=== PATIENT | female | born 1980 | race Caucasian/White ===

== ENCOUNTER 2022-03-27 07:35 | Outpatient (CLI) | payer OTHER, SELFPAY ==
--- NOTE | ~2022-03-27 | MM_ITS ---
EXAMINATION: MM screening amara BI w jed HISTORY: Screening mammogram TECHNIQUE: Craniocaudal and mediolateral oblique 3-D tomosynthesis images were obtained and synthetic 2-D images were generated. CAD analysis was submitted and interpreted. COMPARISON: No prior mammogram is available for comparison at this institution. BREAST PARENCHYMAL COMPOSITION: The breasts are extremely dense, which lowers the sensitivity of mamm ography. FINDINGS: RIGHT BREAST: There is a possible mass in the middle third outer breast best appreciated 4 cm from th e nipple on the craniocaudal view. LEFT BREAST: There is a possible subareolar left breast mass. IMPRESSION: 1. Possible bilateral breast masses which may represent the patient's baseline however no comparison is currently available. 2. Comparison with prior mammograms is necessary. BI-RADS Category 0: Incomplete: Needs comparison with prior mammograms. Reviewed, dictated and finalized at location A. CLERK
== END 2022-03-27 07:36 | disposition home or self-care (01) ==
PROVIDERS: PCP Family Medicine; Visit Provider Student in an Organized Health Care Education/Training Program
DX: Z12.31 Encounter for screening mammogram for malignant neoplasm of breast (principal); R92.8 Other abnormal and inconclusive findings on diagnostic imaging of breast
CPT/HCPCS: 77063; 77067

== ENCOUNTER 2022-04-20 12:12 | Outpatient (CLI) | payer OTHER, SELFPAY ==
--- NOTE | ~2022-04-20 | US_ITS ---
US breast BI complete DATE: 04/20/2022 13:12 INDICATION: Bilateral breast masses suggested on 03/27/2022 screening mammogram TECHNIQUE: High-resolution ultrasound imaging of both complete breasts, including all 4 quadrants and subareolar areas COMPARISON: 03/27/2022 bilateral screening mammogram 04/20/2022 bilateral diagnostic mammogram FINDINGS: No suspicious mass or shadowing, cyst or other significant sonographic abnormality in eithe r breast is detected. IMPRESSION: BI-RADS Category 1: Negative Reviewed, dictated and finalized at Location A. Reviewed, dictated and finalized at location A. DING SERVICES COORDINATOR
--- NOTE | ~2022-04-20 | MM_ITS ---
EXAMINATION: MM diagnostic amara BI w jed HISTORY: Possible bilateral breast masses suggested on 03/27/2022 screening mammogram TECHNIQUE: Additional 3-D tomosynthesis images of both breasts were performed and synthetic 2-D image s were generated. CAD analysis was submitted and interpreted. High resolution complete bilateral keri st ultrasound including all 4 quadrants and subareolar areas was performed. COMPARISON: 03/27/2022 bilateral screening mammogram 12/07/2020 bilateral screening mammogram BREAST PARENCHYMAL COMPOSITION: The breasts are extremely dense, which lowers the sensitivity of mamm ography. FINDINGS: MAMMOGRAPHIC FINDINGS: No suspicious mass or architectural distortion, malignant calcification, skin thickening or retractio n or significant new or developing density is detected. ULTRASOUND: No suspicious mass or shadowing, cyst or other significant sonographic abnormality of either breast i s noted IMPRESSION: 1. No mammographic evidence of malignancy 2. Routine mammographic screening is recommended BI-RADS Category 1: Negative Reviewed, dictated and finalized at location A. VALUE ASSOCIATE
== END 2022-04-20 12:13 | disposition home or self-care (01) ==
LOC: ANHIMG 12:13
PROVIDERS: PCP Family Medicine; Visit Provider Student in an Organized Health Care Education/Training Program
DX: R92.8 Other abnormal and inconclusive findings on diagnostic imaging of breast (principal)
CPT/HCPCS: 76641; 77062; 77066; G0279

== ENCOUNTER 2023-03-26 11:15 | Outpatient (CLI) | payer OTHER, SELFPAY ==
--- NOTE | ~2023-03-26 | MMUS_ITS ---
EXAMINATION: MM diagnostic amara BI w jed, US breast RT limited HISTORY: Palpable lump in the outer right breast TECHNIQUE: Craniocaudal, mediolateral, and mediolateral oblique 3-D tomosynthesis images of the renuka ts were performed and synthetic 2-D images were generated. CAD analysis was submitted and interpreted . High resolution limited right breast ultrasound was performed. COMPARISON: 04/20/2022, 03/27/2022, 12/07/2020, 12/07/2019, 11/11/2018 BREAST PARENCHYMAL COMPOSITION: The breasts are extremely dense, which lowers the sensitivity of mamm ography. FINDINGS: MAMMOGRAPHIC FINDINGS: No suspicious mass, calcification, or architectural distortion are identified in either breast to sug gest malignancy. There has been no suspicious interval change. No suspicious mammographic correlate i s identified for the reported lump of the outer right breast. There is a stable 5 mm mass at the 9:00 location, 3 cm from the nipple in the right breast with central lucency near the fibroglandular joceline in. ULTRASOUND: No suspicious sonographic correlate is identified for the patient's reported right breast lump. There is a benign-appearing intramammary lymph node at the 9:00 location, 3 cm from the nipple in the righ t breast. IMPRESSION: 1. No suspicious mammographic or sonographic correlate is identified for the reported palpable abnorm ality of concern in the right breast. Further evaluation at this time should be based on clinical ass essment. Continued follow-up physical examination is recommended. 2. Recommend routine screening mammography in one year. BI-RADS Category 2: Benign finding(s). Reviewed, dictated and finalized at location A. ER EEL IMPRESSION: 1. No suspicious mammographic or sonographic correlate is identified for the re ported palpable abnormality of concern in the right breast. Further evaluation at this time should be based on clinical assessment. Continued follow-up physic al examination is recommended. 2. Recommend routine screening mammography in one year. BI-RADS Category 2: Benign finding(s).
== END 2023-03-26 11:16 | disposition home or self-care (01) ==
PROVIDERS: PCP Family Medicine; Visit Provider Registered Nurse
DX: N63.11 Unspecified lump in the right breast, upper outer quadrant (principal)
CPT/HCPCS: 76642; 77062; 77066; G0279

== ENCOUNTER 2023-06-13 06:41 | Day surgery (SDC) | payer OTHER, SELFPAY ==
[2023-03-28 08:17] VITALS: BMI 22.1
--- NOTE | 2023-06-12 11:23 | P.PNAN_ITS ---
Anes - Initial Pre Proc Eval Procedure: Operation Date: 06/13/23 08:30 Proposed Procedures p Screening Colonoscopy - Saurabh Busch MD Date/Time: 06/12/23 11:23 Surgeon: Saurabh Busch MD Pre Op Diagnosis: Neoplasm Screening Patient Data Age: 43 Gender: F Height: 1.75 m Weight: 68.039 kg Allergies Allergy/AdvReac Type Severity Reaction Status Date / Time No Known Allergies Allergy Verified 06/13/23 07:15 Home Medications Medication Instructions Recorded Confirmed Type norgestimate-ethinyl estradiol 1 tablet PO DAILY #84 tabs 03/04/23 06/13/23 Rx 0.18 mg/0.215mg/0.25mg-35 mcg(28)tablet sodium,potassium,mag sulfates 17.5 See Rx Instructions PO .COMPLEX 03/28/23 06/13/23 Rx gram-3.13 gram-1.6 gram oral soln #354 mL (Suprep Bowel Prep Kit) Vitamin C 1 tab-cap PO DIRECTED 05/27/23 06/13/23 History multivitamin 1 tablet PO DAILY 05/27/23 06/13/23 History Patient hx anesthesia problems: none Family hx anesthesia problems: none Results Review: All pre-operative results and documents have been reviewed as part of the pre- operative evaluation. [facility] Surgical History Surgical History H/O LEEP Family History Family History Father Colorectal cancer Social History Social History (Updated 03/04/23 @ 10:33 by Aaliyah Jarvis CMA) Smoking status: Never smoker Second hand tobacco smoke exposure: No Alcohol intake: current Drinks per week: 3 Substance use: never Substance use type: does not use Lack of Transportation: No Lack of Food: Never True Current Housing: I Have Housing Concerned About Future Housing: No Difficulty Paying Gas/Electric Bills: No Difficulty Paying for Meds: No Currently Unemployed: No Education: Master's Degree or Higher Difficulty w/ Childcare or Family Care: No Living arrangements: with family Anes - Eval Final PreProcedure Day of Procedure 06/12/23 11:23 Patient weight: normal Heart: regular rate and rhythm Lungs: clear to auscultation and normal air movement Airway: Mallampati scale class II Neurological: alert and oriented Last oral intake: >/= 8 hours ASA classification: I Emergent: no Anesthetic plan: proceed Anesthesia type and monitoring: general GIVS and standard monitoring Results Review: All pre-operative results and documents have been reviewed as part of the pre- operative evaluation. Informed Consent: The patient's anesthetic plan and its attendant risks and benefits were discussed with the patient/family/POA. Questions were solicited and answers provided to the satisfaction of the patient/family/POA.
[2023-06-13 07:05] VITALS: BP 118/77; PULSE 60; RESP 20; TEMP 36.7; O2SAT 100
[2023-06-13] MEDS: LACTATED RINGERS 1,000 ML 150 ML IV CONT (07:32)
--- NOTE | 2023-06-13 07:54 | PM.HPGS ---
History of Present Illness History of Present Illness Consent: Risks, benefits, and alternatives have been discussed and questions answered. Patient agrees to proceed with procedure. Chief complaint: Neoplasm Screening Narrative: Eunice Herrera is a 43 year old female presents for screening colonoscopy. Patient's current weight is are normal. Patient abdominal pain. She has had no bleeding. Family history is significant that her father had colon cancer. Review of Systems Review of Systems: Review of systems noncontributory. [facility] Surgical History Surgical History H/O LEEP Family History Family History Father Colorectal cancer Social History Social History (Updated 03/04/23 @ 10:33 by Aaliyah Jarvis CMA) Smoking status: Never smoker Second hand tobacco smoke exposure: No Alcohol intake: current Drinks per week: 3 Substance use: never Substance use type: does not use Lack of Transportation: No Lack of Food: Never True Current Housing: I Have Housing Concerned About Future Housing: No Difficulty Paying Gas/Electric Bills: No Difficulty Paying for Meds: No Currently Unemployed: No Education: Master's Degree or Higher Difficulty w/ Childcare or Family Care: No Living arrangements: with family Meds Home Medications and Allergies Home Medications Medication Instructions Recorded Confirmed Type norgestimate-ethinyl estradiol 1 tablet PO DAILY #84 tabs 03/04/23 06/13/23 Rx 0.18 mg/0.215mg/0.25mg-35 mcg(28)tablet sodium,potassium,mag sulfates 17.5 See Rx Instructions PO .COMPLEX 03/28/23 06/13/23 Rx gram-3.13 gram-1.6 gram oral soln #354 mL (Suprep Bowel Prep Kit) Vitamin C 1 tab-cap PO DIRECTED 05/27/23 06/13/23 History multivitamin 1 tablet PO DAILY 05/27/23 06/13/23 History Allergies Allergy/AdvReac Type Severity Reaction Status Date / Time No Known Allergies Allergy Verified 06/13/23 07:15 Vital Signs Vital Signs - 24 hr 06/13/23 07:05 Temperature 98.1 F Pulse Rate 60 Respiratory Rate 20 Blood Pressure 118/77 Pulse Oximetry 100 Oxygen Delivery Room Air Exam Narrative: Physical exam reveals patient to be alert. Vital signs stable. HEENT exam is unremarkable. Patient is anicteric. Lungs are clear to auscultation and percussion. Is without murmur or extra sounds. Abdomen bowel sounds are present soft nontender with no organomegaly. Digital external rectal exam is normal. Assessment and Plan Assessment and plan (1) Family history of colon cancer in father: Code(s): Z80.0 - Family history of malignant neoplasm of digestive organs Status: Acute Assessment and Plan: Patient's father had colon cancer. Plan for surveillance colonoscopy now and consider this at 5 year intervals.
[2023-06-13 08:48] VITALS: BP 122/72; PULSE 66; RESP 16; O2SAT 100
[2023-06-13 08:58] VITALS: BP 104/90; PULSE 56; RESP 18; O2SAT 100
[2023-06-13 09:08] VITALS: BP 117/80; PULSE 62; RESP 16; O2SAT 100
--- NOTE | 2023-06-13 10:12 | WPDANESPN ---
Anes - Prog Note Post-Op Date/Time: 06/13/23 10:12 Cardiovascular status: normal Respiratory status: normal Airway patency: baseline Mental status: baseline Post-Op hydration status: normal Vital Signs: Last Vital Signs Temp 36.7 C 06/13/23 07:05 Pulse 62 06/13/23 09:08 Resp 16 06/13/23 09:08 BP 117/80 06/13/23 09:08 Pulse Ox 100 06/13/23 09:08 O2 Del Method Room Air 06/13/23 09:08 Pain Score (VAS): 0 I/O: Intake & Output 06/12/23 06/13/23 06/13/23 23:59 07:59 15:59 Intake Total 950 Balance 950 Post-procedural complaints: none Patient Feedback: Patient satisfied with anesthetic care. Other Findings: Patient vital signs back to baseline. Patient denies nausea and vomiting. Patient's pain under control. Patient OK for discharge.
== END 2023-06-13 09:25 | disposition home or self-care (01) ==
PROVIDERS: PCP Family Medicine; Visit Provider Internal Medicine Gastroenterology
PROC: 0DJD8ZZ Inspection of Lower Intestinal Tract, Via Natural or Artificial Opening Endoscopic (ICD-10-PCS; CPT 45378; principal; 2023-06-13 08:30)
DX: Z80.0 Family history of malignant neoplasm of digestive organs (principal); K64.8 Other hemorrhoids
CPT/HCPCS: 45378

== ENCOUNTER 2024-08-19 15:23 | Outpatient (CLI) | payer OTHER, SELFPAY ==
--- NOTE | ~2024-08-19 | MM_ITS ---
EXAMINATION: MM screening amara BI w jed HISTORY: Screening TECHNIQUE: Craniocaudal and mediolateral oblique 3-D tomosynthesis images were obtained and synthetic 2-D images were generated. CAD analysis was submitted and interpreted. COMPARISON: Comparison to multiple prior studies sequentially, with oldest reviewed study dated 11/11. BREAST PARENCHYMAL COMPOSITION: Dense: The breasts are extremely dense, which lowers the sensitivity of mammography. FINDINGS: There is a possible mass laterally on CC view, middle third. The left breast is stable with out evidence for malignancy. IMPRESSION: 1. Possible mass lateral aspect of the right breast on CC view. 2. Additional mammographic views and possible breast ultrasound are recommended. BI-RADS Category 0: Incomplete: Needs additional imaging evaluation. Reviewed, dictated and finalized at location A. IMPRESSION: 1. Possible mass lateral aspect of the right breast on CC view. 2. Additional mammographic views and possible breast ultrasound are recommended . BI-RADS Category 0: Incomplete: Needs additional imaging evaluation.
--- OUTSIDE RECORDS SUMMARY | 2024-08-19 16:16 | XMS_ITS | Clinical Summary ---
Author Organization [facility] Address [address] [place] [phone] Phone Care Team Providers Care Staff [employer] Officer Name Role Phone Unavailable Primary Care Provider Unavailabl e Family History Medical History Relation Name Comments Breast Cancer Neg Hx Social History Tobacco Use Types Packs/Day Years Used Date Smoking Tobacco: Never Assessed Comments No Sex and Gender Information Value Date Recorded Sex Assigned at Not on file Legal Sex Female 5:21 PM CDT Gender Identity Not on file Sexual Orientation Not on file Plan of Treatment Health Maintenance Due Date Last Done Comments DTAP/TDAP/TD VACCINES (1 - Tdap) 1997 HEPATITIS B VACCINES (1 of 3 - 19+ 3-dose series) 1997 BREAST CANCER SCREENING 12/07/2021 12/08/19, 12/07/2019, 11/11/2018 PAP SMEAR 11/15/2022 11/16/2019, 10/20, 10/28/2017, Additional history exists COLORECTAL SCREENING 2023 Colorectal Cancer Screening 2023 FIT-DNA Q 3 years 2023 FIT/FOBT Q 1 year 2023 Flex Sig/CT Colonography Q 5 years 2023 INFLUENZA VACCINE (#1) 2023 CERVICAL CANCER SCREENING 11/15/2024 HPV/Cotest (21-29) 11/15/2024 11/16/2019, 0 10/28/2017, 10/11/2016 HPV/Cotest (30-65) 11/15/2024 11/16/2019, 0 10/28/2017, 10/11/2016 HPV VACCINES Aged Out No longer eligi ble based on patient's age to complete this topic Procedures Procedure Name Priority Date/Time Associated Diagnosis Comments MAMMO SCREEN BILAT W OR WO CAD Routine 12/07/2020 9:01 AM CDT Visit for screening mammogram CERV/VAG CYTO AGE BASED SCREEN PAP Routine 11/16/2019 12:19 PM CDT Smear, vaginal, as part of routine gynecological examination from Last 3 Months or Most Recently Relevant to Health Maintenance Results * MAMMO SCREEN BILAT W OR WO CAD (12/07/2020 9:01 AM CDT) Anatomical Region Laterality Modality Breast Bilateral Mammography 12/07/2020 9:01 AM CDT Impressions 12/07/2020 10:02 AM CDT IMPRESSION: No mammographic evidence of malignancy. RECOMMENDATIONS: Routine screening mammogram in one year. DICTATION LOCATION: [facility] Narrative 12/07/2020 10:02 AM CDT MAMMO SCREEN BILAT W OR WO CAD DATE: 12/07/2020 9:01 AM HISTORY: Routine screening. TECHNIQUE: Full field digital craniocaudal and mediolateral oblique projections of both breasts were obtained. Computer aided diagnosis was performed. COMPARISON: 2019. BREAST COMPOSITION: Extremely dense, which limits the sensitivity of mammography. FINDINGS: No suspicious mass, suspicious microcalcifications, or architectural distortion in either breast is identified. Since the prior study, there has been no significant interval change. The computer aided diagnosis detects no significant abnormality. OVERALL FINAL ASSESSMENT: BI-RADS CATEGORY 1 : Negative Procedure Note Tamir Marshall MD - 12/07/2020 MAMMO SCREEN BILAT W OR WO CAD DATE: 12/07/2020 9:01 AM HISTORY: Routine screening. TECHNIQUE: Full field digital craniocaudal and mediolateral oblique projections of both breasts were obtained. Computer aided diagnosis was performed. COMPARISON: 2019. BREAST COMPOSITION: Extremely dense, which limits the sensitivity of mammography. FINDINGS: No suspicious mass, suspicious microcalcifications, or architectural distortion in either breast is identified. Since the prior study, there has been no significant interval change. The computer aided diagnosis detects no significant abnormality. OVERALL FINAL ASSESSMENT: BI-RADS CATEGORY 1 : Negative IMPRESSION: No mammographic evidence of malignancy. RECOMMENDATIONS: Routine screening mammogram in one year. DICTATION LOCATION: [facility] us Bess Freeman DO MAMMO ORDERABLES Final Result * CERV/VAG CYTO AGE BASED SCREEN PAP (11/16/2019 12:19 PM CDT) COMMENT (PAP): SEE COMMENT 0 1:21 PM CDT [facility] Comment: This order for age-based cervical cancer and STI screening follows ACOG guidelines(PB 168, 140, ILI109). See individual assays for performing site location. CLINICAL INFORMATION Information not provided 11/20/2019 1:21 PM CDT [facility] LAST MENSTRUAL PERIOD [id number] 11/20/2019 1:21 PM CDT [facility] PREV PAP: INFORMATION NOT PROVIDED 11/20/2019 1:21 PM CDT [facility] PREV BX: INFORMATION NOT PROVIDED 11/20/2019 1:21 PM CDT [facility] SOURCE Endocervix 11/20/2019 1:21 PM CDT [facility] ADEQUACY: SEE COMMENT 11/20/2019 1:21 PM CDT [facility] Comment: Satisfactory for evaluation. Endocervical/transformation zone component present. PAP INTERP Negative for intraepithelial lesion or malignancy. 11/20/2019 1:21 PM CDT [facility] COMMENT This Pap test has been evaluated with computer assisted technology. 11/20/2019 1:21 PM CDT [facility] COMPRESSOR SERVICE TECHNICIAN: SEE COMMENT 2019 1:21 PM CDT [facility] Comment: MEF, CT(ASCP) CT screening location: [place] [address] [place] [address] EXPLANATORY NOTE SEE COMMENT 020 1:21 PM CDT [facility] Comment: EXPLANATORY NOTE: The Pap is a screening test for cervical cancer. It is not a diagnostic test and is subject to false negative and false positive results. It is most reliable when a satisfactory sample, regularly obtained, is submitted with relevant clinical findings and history, and when the Pap result is evaluated along with historic and current clinical information. HPV E6/E7 Not Detected Not Detected 11/20/2019 1:21 PM CDT [facility] Comment: This test was performed using the APTIMA HPV Assay ([employer] This assay detects E6/E7 viral messenger RNA (mRNA) from 14 high-risk HPV types (16,18,31,33,35,39,45,51,52,56,58,59,66,68). The analytical performance characteristics of this assay have been determined by [facility]. The modifications have not been cleared or approved by the FDA. This assay has been validated pursuant to the CLIA regulations and is used for clinical purposes. Genital SWAB OF ENDOCERVIX / Unknown Collection / Unknown 11/16/2019 12:19 PM CDT 11/16/2019 11:32 PM CDT Narrative [facility] - 11/20/2019 1:21 PM CDT Performing Organization Information: Site ID: [id number] Name: [facility] Address: [address] [place] [address] Director: Yonathan Rollins D.O., MPH Site ID: [id number] Name: [facility] Address: [address] [place] [address] Director: Adalid Mckeon Asiya Reynolds MD PATHOLOGY/CYTOLOGY ORDERABLES Fi nal Result [facility] [phone] from Last 3 Months or Most Recently Relevant to Health Maintenance Insurance [facility] [place] [id number]
--- OUTSIDE RECORDS SUMMARY | 2024-08-19 16:16 | XMS_ITS | Clinical Summary ---
Author Organization Address [address] [place] [address] Care Team Providers Care Argon Tester Name Role Phone Unavailable Primary Care Provider Unavailabl e Social History Tobacco Use Types Packs/Day Years Used Date Smoking Tobacco: Never Assessed Comments Unknown Sex and Gender Information Value Date Recorded Sex Assigned at Not on file Legal Sex Female 3:42 PM CDT Gender Identity Not on file Sexual Orientation Not on file Plan of Treatment Health Maintenance Due Date Last Done Comments Hepatitis C Virus (HCV) Screening 1978 TdaP Immunization 1978 Hepatitis B Immunization (1 of 3 - 19+ 3-dose series) 1997 Pap Smear 1999 Cervical Cancer Screening (CCS) 02/06/2008 HPV/Cotest 02/06/2008 Discussion re Starting/Frequ ency of Mammograms 2018 Colonoscopy 2023 Colorectal Cancer Screening 2023 Influenza Immunization (#1) 2023 SARS-COV-2 Immunization ( season) 2023 Respiratory Syncytial Virus (RSV) Immunization (Adult) (1 - 1-dose 75+ series) 2053 Meningococcal Immunization (ACWY) Aged Out No longer eligible based on patient's age to complete this topic Pneumococcal Immunization Combined Aged Out No longer eligible based on patient's age to complete this topic Rotavirus Immunization Aged Out No lo nger eligible based on patient's age to complete this topic
--- OUTSIDE RECORDS SUMMARY | 2024-08-19 16:16 | XMS_ITS | Referral Summary ---
Author Organization [facility] [address] Address [address] [place] [address] Care Team Providers Care Internal Audit Senior Manager Name Role Phone No, Physician Primary Care Provider [phone] Bess Freeman DO Unavailable [phone] Allergies No known active allergies Medications norgestimate-eth inyl estradioL (ORTHO TRI-CYCLEN) 0.18/0.215/0.25 mg-35 mcg (28) per tablet Take 1 tablet by mouth daily 84 tablet 4 12/06/2020 Active Active Problems No known active problems Social History Tobacco Use Types Packs/Day Years Used Date Smoking Tobacco: Never Smokeless Tobacco: Never Personal Safety Answer Date Recorded Getting School Help Needed Not on file 07/06 Comments No Sex and Gender Information Value Date Recorded Sex Assigned at Not on file Legal Sex Female 10:01 AM CDT Gender Identity Not on file Sexual Orientation Not on file Last Filed Vital Signs Vital Sign Reading Time Taken Comments Blood Pressure 132/80 11/21/2020 11:48 AM CDT Pulse - - Temperature - - Respiratory Rate - - Oxygen Saturation - - Inhaled Oxygen Concentration - - Weight 63.6 kg (140 lb 3.2 oz) 11/21/2020 11:48 AM CDT Height 175.3 cm (5' 9 ) 11/21/2020 11:48 AM CDT Body Mass Index 20.7 11/21/2020 11:48 AM CDT Plan of Treatment Not on file Insurance [facility] CHOICE PLUS Care Teams Internal Audit Senior Manager Relationship Specialty Start Date End Date No, Physician PCP - General 11/21/20 [place] [address] [place] [address] Consulting Physician Obstetrics and Gynecology 07/31/21
--- OUTSIDE RECORDS SUMMARY | 2024-08-19 16:16 | XMS_ITS | Clinical Summary ---
Author Organization [facility] [address] Address [address] [facility] [place] [address] Care Team Providers Care Measuring Machine Tender Name Role Phone No, Physician Primary Care Provider [phone] Bess Freeman DO Unavailable Allergies No known active allergies Medications norgestimate-eth inyl estradioL (ORTHO TRI-CYCLEN) 0.18/0.215/0.25 mg-35 mcg (28) per tablet Take 1 tablet by mouth daily 84 tablet 4 12/06/2020 Active Active Problems No known active problems Family History Medical History Relation Name Comments Colon cancer Father Heart disease Maternal Grandmother Relation Name Status Comments Father Maternal Grandmother Social History Tobacco Use Types Packs/Day Years Used Date Smoking Tobacco: Never Smokeless Tobacco: Never Personal Safety Answer Date Recorded Getting School Help Needed Not on file 07/06 Comments No Sex and Gender Information Value Date Recorded Sex Assigned at Not on file Legal Sex Female 10:01 AM CDT Gender Identity Not on file Sexual Orientation Not on file Obstetrics History Last Filed Vital Signs Vital Sign Reading [...] Plan of Treatment Not on file Insurance [facility] CHOICE PLUS [facility] H[facility]/PPO Address: [address] [address] Care Teams Measuring Machine Tender Relationship Specialty Start Date End Date No, Physician PCP - General 11/21/20 [place] [address] [place] [address] Consulting Physician Obstetrics and Gynecology 07/31/21
== END 2024-08-19 15:24 | disposition home or self-care (01) ==
LOC: ANHIMG 15:23
PROVIDERS: PCP Family Medicine; Visit Provider Nurse Practitioner Family
DX: Z12.31 Encounter for screening mammogram for malignant neoplasm of breast (principal); R92.8 Other abnormal and inconclusive findings on diagnostic imaging of breast
CPT/HCPCS: 77063; 77067

== ENCOUNTER 2024-09-08 13:16 | Outpatient (CLI) | payer OTHER, SELFPAY ==
--- NOTE | ~2024-09-08 | MMUS_ITS ---
EXAMINATION: US breast RT complete, MM diagnostic amara RT w jed HISTORY: Follow-up right breast asymmetry TECHNIQUE: Additional 3-D tomosynthesis images of the right breast were performed and synthetic 2-D i mages were generated. CAD analysis was submitted and interpreted. High resolution complete right keri st ultrasound was performed. COMPARISON: Comparison to multiple prior studies sequentially, with oldest reviewed study dated 12/06. BREAST PARENCHYMAL COMPOSITION: Dense: The breasts are extremely dense, which lowers the sensitivity of mammography. FINDINGS: MAMMOGRAPHIC FINDINGS: There are no suspicious masses, calcifications or architectural distortion in the right breast to sug gest malignancy. Focal asymmetry on prior examination not appreciated on current study. ULTRASOUND: Complete US of all 4 quadrants of the right breast/s and retroareolar region was reviewed. Normal het erogeneous echotexture without focal solid or cystic mass. IMPRESSION: 1. No evidence for malignancy in the right breast. 2. Routine yearly screening mammogram and regular clinical breast examination are recommended. BI-RADS Category 1: Negative Reviewed, dictated and finalized at location B. IMPRESSION: 1. No evidence for malignancy in the right breast. 2. Routine yearly screening mammogram and regular clinical breast examination a re recommended. BI-RADS Category 1: Negative
--- OUTSIDE RECORDS SUMMARY | 2024-09-08 13:20 | XMS_ITS | Clinical Summary ---
Author Organization [facility] Address [address] [place] [address] Care Team Providers Care Mechanical Service Representative Name Role Phone Unavailable Primary Care Provider [...]
--- OUTSIDE RECORDS SUMMARY | 2024-09-08 13:20 | XMS_ITS | Referral Summary ---
Author Organization [facility] [address] Address [address] [place] [address] Care Team Providers Care Manager Critical Care Unit Name Role Phone No, Physician Primary Care Provider [phone] Bess Freeman DO Unavailable [phone] Allergies No known active allergies Medications norgestimate-eth [...] Plan of Treatment Not on file Insurance [facility] CHOICE PLUS [facility] HMO/PPO Address: [facility] [address] [place] [address] Care Teams Manager Critical Care Unit Relationship Specialty Start Date End Date No, Physician PCP - General 11/21/20 [place] [address] [place] [address] Consulting Physician Obstetrics and Gynecology 07/31/21
--- OUTSIDE RECORDS SUMMARY | 2024-09-08 13:20 | XMS_ITS | Clinical Summary ---
Author Organization [facility] [address] [place] Address [address] [facility] [place] [address] Care Team Providers Care System Support Developer Name Role Phone No, Physician Primary Care Provider [phone] Bess Freeman DO Unavailable [phone] Allergies No known active allergies Medications norgestimate-eth [...] Plan of Treatment Not on file Insurance [facility] CHOICE PLUS [facility] H[facility]/PPO Address: [address] [address] Care Teams System Support Developer Relationship Specialty Start Date End Date No, Physician PCP - General 11/21/20 [place] [address] [place] [address] Consulting Physician Obstetrics and Gynecology 07/31/21
--- OUTSIDE RECORDS SUMMARY | 2024-09-08 13:20 | XMS_ITS | Clinical Summary ---
Author Organization [facility] Address [address] [place] [id number] Phone Care Team Providers Care Director Center Name Role Phone Unavailable Primary Care Provider [...] screening mammogram in one year. DICTATION LOCATION: [facility] Narrative 12/07/2020 10:02 AM CDT MAMMO [...] screening mammogram in one year. DICTATION LOCATION: [facility] us Bess Freeman DO MAMMO ORDERABLES Final Result * CERV/VAG CYTO AGE BASED SCREEN PAP (11/16/2019 12:19 PM CDT) COMMENT (PAP): SEE COMMENT 0 1:21 PM CDT [facility] Comment: This order for age-based cervical cancer and STI screening follows ACOG guidelines(PB 168, 140, BUB279). See individual assays for performing site location. CLINICAL INFORMATION Information not provided 11/20/2019 1:21 PM CDT [facility] LAST MENSTRUAL PERIOD [id number] 11/20/2019 1:21 PM CDT [facility] [...] 1:21 PM CDT [facility] ST NON LINEAR EDITOR: SEE COMMENT 2019 1:21 PM CDT [facility] Comment: MEF, CT(ASCP) CT screening location: [place] [address] [place] [address] EXPLANATORY NOTE SEE COMMENT 020 1:21 PM [...] of this assay have been determined by [facility]. The modifications have not been cleared or approved by the FDA. This assay has been validated pursuant to the CLIA regulations and is used for clinical purposes. Genital SWAB OF ENDOCERVIX / Unknown Collection / Unknown 11/16/2019 12:19 PM CDT 11/16/2019 11:32 PM CDT Narrative [facility] - 11/20/2019 1:21 PM CDT Performing Organization Information: Site ID: [id number] Name: [facility] Address: [address] [place] [address] Director: Yonathan Rollins D.O., MPH Site ID: [place] [facility] Address: [address] [place] [address] Director: Adalid Mckeon Asiya Reynolds MD PATHOLOGY/CYTOLOGY ORDERABLES Fi nal Result [facility] [phone] from Last 3 Months or Most Recently Relevant to Health Maintenance Insurance [facility] [employer] [id number]
== END 2024-09-08 13:17 | disposition home or self-care (01) ==
LOC: ANHIMG 13:18
PROVIDERS: PCP Family Medicine; Visit Provider Nurse Practitioner Family
DX: R92.8 Other abnormal and inconclusive findings on diagnostic imaging of breast (principal)
CPT/HCPCS: 76641; 77061; 77065; G0279